=== PATIENT | male | born 1985 | race Caucasian/White ===

== ENCOUNTER 2016-05-04 11:19 | Emergency (ER) | payer OTHER ==
[~2016-05-04] VITALS: Ht 180.3 cm; Wt 77.1 kg
[~2016-05-04 11:19] MED LIST: ZANTTAB9 PO
[2016-05-04 11:30] VITALS: BP 118/86; PULSE 79; RESP 17; TEMP 98.4; O2SAT 100
[2016-05-04] MEDS ORDERED: AZIT250T3 PO (11:55)
[2016-05-04] MEDS ORDERED: MEDR4PAK PO (11:55)
[2016-05-04] MEDS ORDERED: ALBUAER3 INH (11:55)
--- NOTE | 2016-05-04 12:01 | PD ---
HPI Chief Complaint: Cold / Flu Symptoms Time Seen by Provider: 11:56 Travel History International Travel<30 days: No Contact w/Intl Traveler<30days: No Traveled to known affect area: No History of Present Illness HPI Patient is a 30-year-old male sitting with ENT/URI symptoms for 4 days. He states he had influenza in March and only recently got over that several weeks ago. He's been having a cough that is dry with wheezing, denies history of asthma. He is a tobacco user. He denies chest pain, fever and dyspnea. He said is a congestion as well and yesterday developed sore throat. He states that his tonsils are enlarged which Is improved greatly when he gets "infections ". He denies any lymphadenopathy, neck stiffness, masses or induration. He denies myalgias and headaches. He has pain with swallowing but denies inability to swallow or difficulty breathing through the mouth. PFSH Past Medical History Bipolar Disorder: Yes Anxiety: Yes Depression: Yes Diminished Hearing: No GERD: Yes Immunizations Current: No Past Surgical History Oral Surgery: Yes (WISDOM TEETH ) Tympanostomy Tube: Yes Other Surgery: Yes (PILONIDIAL POLYPS) Social History Alcohol Use: No (denies) Tobacco Use: Yes (1 PPD) Substance Use: Yes ("RECOVERING ADDICT") Allergies-Medications (Allergen,Severity, Reaction): Coded Allergies: No Known Allergies (Unverified , 05/04/16) Reported Meds & Prescriptions Reported Meds & Active Scripts Active Medrol Dosepak (Methylprednisolone) 4 Mg Dspk 4 Mg PO DIRECTED Per Pharmacist direction Proair Hfa 8.5 GM Inh (Albuterol Sulfate) 90 Mcg/Act Aer 2 Puff INH Q4-6H PRN 108 mcg/actuation Azithromycin 250 Mg Tab 250 Mg PO DIRECTED Take 2 tabs (500 mg) on day 1 then 1 tab daily x 4 days. Review of Systems Except as stated in HPI: all other systems reviewed are Neg Physical Exam Narrative GENERAL: Well-developed and well-nourished adult male in no acute distress. SKIN: Warm and dry. Good turgor without tenting. HEAD: Normocephalic and atraumatic. EYES: PERRL bilaterally, 5mm. EOMI bilaterally. No injection or icterus present. No proptosis. Lids without edema or erythema. ENT: Bilateral ear canals are non-edematous/non-erythematous without otorrhea. Bilateral TMs have intact landmarks and without distortion, perforation, air- fluid level or erythema. Nasal mucosa erythematous and edematous with clear discharge, septum intact and midline. Buccal mucosa pink and moist. Oropharynx reveals bilateral 2+ tonsillar hypertrophy without erythema, masses, swelling, asymmetry and exudates. Uvula midline and airway patent. NECK: Supple, no meningeal signs. Trachea midline, no JVD. No cervical or facial lymphadenopathy. No masses or induration palpated. CARDIOVASCULAR: Regular rate and rhythm without murmurs, rubs, clicks or gallops. Radial and posterior tibial pulses 2+ bilaterally. No pedal edema. RESPIRATORY: Scattered rhonchi with occasional end expiratory wheezing, no rales auscultated. No distress or use of accessory muscles. No stridor, tripoding or drooling. Speaks in full sentences. MUSCULOSKELETAL: No gait disturbances. Patient freely moving all four extremities spontaneously. Extremities without clubbing, cyanosis, or edema. No obvious deformities. NEUROLOGIC: CN II-XII grossly intact. Awake and alert. Motor grossly within normal limits. Normal speech. PSYCHIATRIC: Appropriate mood and affect; insight and judgment normal. Data Data Last Documented VS Vital Signs Date Time Temp Pulse Resp B/P Pulse Ox O2 Delivery O2 Flow Rate FiO2 05/04/16 11:30 98.4 79 17 118/86 100 Orders Albuterol-Ipratropium Neb (Duoneb Neb) (05/04/16 12:00) [facility] Medical Decision Making Medical Screen Exam Complete: Yes Emergency Medical Condition: Yes Differential Diagnosis Bronchitis versus pneumonia versus viral syndrome versus pharyngitis Narrative Course Patient is a 30-year-old male who is a current smoker presenting with ENT/URI symptoms for 4 days. He recently had influenza which resolved several weeks prior. He is afebrile and nontoxic appearing. He has some rhonchi and wheezing on exam but hasn't no increased work of breathing and oxygen saturations are normal on room air. He has some tonsillar hypertrophy but no exudate or erythema, Centor criteria of 0. As he has other ENT symptoms do not believe any rapid strep would be of benefit. DuoNeb 2 given, [-]. This patient had recent viral infection in his tobacco smoker there is concern for bacterial etiology. We'll provide azithromycin, pro-air inhaler and Medrol Dosepak.See discharge paperwork for further instructions. The plan was discussed with the patient who acknowledged their understanding and agreement. Reinforced the follow-up with primary care is critically important. Patient instructed on emergent conditions that should prompt return to ED. Diagnosis Primary Impression: Acute bronchitis Qualified Code: J20.9 - Acute bronchitis, unspecified organism Patient Instructions: Acute Bronchitis (ED), General Instructions Departure Forms: Tests/Procedures, Work Release Enter return to work date: May 07, 2016 Additional Instructions: Take medication as prescribed OTC Mucinex, cough suppressants, and decongestants as needed OTC Tylenol or Ibuprofen for fever and discomfort Drink lots of fluid to help clear mucous/drainage and stay hydrated Follow up with PCP in 2 days Return to the ED for any acute worsening of symptoms Med/Other Pt SpecificInfo: Prescription(s) given Scripts Methylprednisolone Dosepak (Medrol Dosepak)4 Mg Dspk4 Mg PO DIRECTED #1 DSPK Per Pharmacist direction Prov:Anat Doyle MD 05/04/16 Albuterol 8.5 GM Inh (Proair Hfa 8.5 GM Inh)90 Mcg/Act Aer2 Puff INH Q4-6H PRN ( SHORTNESS OF BREATH) #1 INHALER 108 mcg/actuation Prov:Anat Doyle MD 05/04/16 Azithromycin 250 Mg Nss044 Mg PO DIRECTED #6 TAB Take 2 tabs (500 mg) on day 1 then 1 tab daily x 4 days. Prov:Anat Doyle MD 05/04/16 Disposition: 01 DISCHARGE HOME Condition: Stable Jose Davis III May 04, 2016 12:01
[2016-05-04] MEDS: RESP: ALBUTEROL 2.5 MG/IPRATROPIUM 0.5 MG NEB (SCH) INH (12:04)
== END 2016-05-04 12:59 | disposition home or self-care (01) ==
LOC: PHEFT 11:19
DX: J20.9 Acute bronchitis, unspecified (principal); R06.2 Wheezing; R07.0 Pain in throat; F17.200 Nicotine dependence, unspecified, uncomplicated; Z86.59 Personal history of other mental and behavioral disorders; Z87.19 Personal history of other diseases of the digestive system
CPT/HCPCS: 94640; 94664; 99283

== ENCOUNTER 2017-02-01 19:53 | Emergency (ER) | payer OTHER ==
[~2017-02-01 19:53] MED LIST changes: +ALBUAER3 INH; +AZIT250T3 PO; +MEDR4PAK PO; -ZANTTAB9 PO
[2017-02-01 19:56] VITALS: BP 135/80; PULSE 95; RESP 18; TEMP 97.9; O2SAT 97
[2017-02-01] MEDS ORDERED: Lithium (20:47)
[2017-02-01] MEDS ORDERED: DIAZ5TAB PO (20:47)
[2017-02-01] MEDS ORDERED: ZANT300T PO (20:47)
[2017-02-01] MEDS ORDERED: OMEP10CA PO (20:47)
--- NOTE | 2017-02-01 20:56 | PD ---
HPI Chief Complaint: Musculoskeletal Complaint Time Seen by Provider: 20:39 Travel History International Travel<30 days: No Contact w/Intl Traveler<30days: No Traveled to known affect area: No History of Present Illness HPI 31-year-old male presents to emergency department complaining of right wrist pain that occurred this afternoon about 4 PM. States that he was driving his car and developed a pain to his right wrist and is concerned because he [facility]. Patient states that he is tender to the touch of the base the thumb and wrist area is not normal for him. He says he has full range of motion of his wrist and has saturator strength but he did drop a drink today because of the pain. Patient has taken Tylenol for his pain with minimal relief. History Social History Alcohol Use: No (denies) Tobacco Use: Yes (1 PPD) Allergies-Medications (Allergen,Severity, Reaction): Coded Allergies: No Known Allergies (Unverified Adverse Reaction, Unknown, 02/01/17) Reported Meds & Prescriptions Reported Meds & Active Scripts Active Reported Zantac (Ranitidine HCl) 300 Mg Tab Unknown Dose PO DAILY Omeprazole 10 Mg Cap Unknown Dose PO DAILY Diazepam 5 Mg Tab Unknown Dose PO DAILY [[place]] Unknown Dose Review of Systems Except as stated in HPI: all other systems reviewed are Neg Physical Exam Narrative GENERAL: Well-nourished, well-developed patient. SKIN: Focused skin assessment warm/dry. HEAD: Normocephalic. EYES: No scleral icterus. No injection or drainage. NECK: Supple, trachea midline. No JVD or lymphadenopathy. CARDIOVASCULAR: Regular rate and rhythm without murmurs, gallops, or rubs. RESPIRATORY: Breath sounds equal bilaterally. No accessory muscle use. MUSCULOSKELETAL: No cyanosis, or edema. Right wrist: TTP to the radial aspect of thumb tendons, positive Jaguar, neurovascular intact. Full range of motion. No ecchymosis, crepitus or edema. BACK: Nontender without obvious deformity. No CVA tenderness. Data Data Last Documented VS Vital Signs Date Time Temp Pulse Resp B/P (MAP) Pulse Ox O2 Delivery O2 Flow Rate FiO2 02/01/17 19:56 97.9 95 18 135/80 (98) 97 MDM Medical Screen Exam Complete: Yes Emergency Medical Condition: Yes Differential Diagnosis Dequervains tenosynovisits right wrist Narrative Course 31-year-old male presents to emergency department complaining of right wrist pain that occurred this afternoon about 4 PM. States that he was driving his car and developed a pain to his right wrist and is concerned because he is currently being treated for a fracture of the right wrist by the [place]. [facility] says that [facility]. Patient states that he is tender to the touch of the base the thumb and wrist area is not normal for him. He says he has full range of motion of his wrist and has saturator strength but he did drop a drink today because of the pain. Patient has taken Tylenol for his pain with minimal relief. He did not wear his brace to the emergency department today. Denies illicit drug use. Physical exam demonstrates positive Jaguar's, TTP to the base of the thumb and wrist area, full range of motion without crepitus, no ecchymosis or edema. Neurovascularly intact We had a long discussion as to what we can do for him today to include imaging studies and anti-inflammatory medications. He has a patient's financial status he stated that he would not be a refill his medications anyway and stated that he'll follow up with his [place] primary care physician in the morning. I explained that he will need to follow up with his primary care physician anyway to further evaluate his condition. A medical screening exam was performed: At the time of evaluation the presenting medical condition was determined not to be of an emergent nature. The patient was given the option of receiving additional care, but declined. Patient was given options for additional community resources from which to obtain care. The Patient Has Been advised to seek medical attention for their presenting complaint. The patient has been advised to return to the ER at any time if an emergent condition develops. Primary Impression: Encounter for medical screening examination Disposition: 01 DISCHARGE HOME Condition: Stable Adri Dial Feb 01, 2017 20:56
--- NOTE | 2017-02-01 20:56 | PD ---
HPI Chief Complaint: Musculoskeletal Complaint Time Seen by Provider: 20:39 Travel History International Travel<30 days: No Contact w/Intl Traveler<30days: No Traveled to known affect area: No History of Present Illness HPI 31-year-old male presents to emergency department complaining of right wrist pain that occurred this afternoon about 4 PM. States that he was driving his car and developed a pain to his right wrist and is concerned because he is currently [facility]. Patient states that he is tender to the touch of the base the thumb and wrist area is not normal for him. He says he has full range of motion of his wrist and has lieutenant general strength but he did drop a drink today because of the pain. Patient has taken Tylenol for his pain with minimal relief. History Social History Alcohol Use: No (denies) Tobacco Use: Yes (1 PPD) Allergies-Medications (Allergen,Severity, Reaction): Coded Allergies: No Known Allergies (Unverified Adverse Reaction, Unknown, 02/01/17) Reported Meds & Prescriptions Reported Meds & Active Scripts Active Reported Zantac (Ranitidine HCl) 300 Mg Tab Unknown Dose PO DAILY Omeprazole 10 Mg Cap Unknown Dose PO DAILY Diazepam 5 Mg Tab Unknown Dose PO DAILY [[place]] Unknown Dose Review of Systems Except as stated in HPI: all other systems reviewed are Neg Physical Exam Narrative GENERAL: Well-nourished, well-developed patient. SKIN: Focused skin assessment warm/dry. HEAD: Normocephalic. EYES: No scleral icterus. No injection or drainage. NECK: Supple, trachea midline. No JVD or lymphadenopathy. CARDIOVASCULAR: Regular rate and rhythm without murmurs, gallops, or rubs. RESPIRATORY: Breath sounds equal bilaterally. No accessory muscle use. MUSCULOSKELETAL: No cyanosis, or edema. Right wrist: TTP to the radial aspect of thumb tendons, positive Jaguar, neurovascular intact. Full range of motion. No ecchymosis, crepitus or edema. BACK: Nontender without obvious deformity. No CVA tenderness. Data Data Last Documented VS Vital Signs Date Time Temp Pulse Resp B/P (MAP) Pulse Ox O2 Delivery O2 Flow Rate FiO2 02/01/17 19:56 97.9 95 18 135/80 (98) 97 MDM Medical Screen Exam Complete: Yes Emergency Medical Condition: Yes Differential Diagnosis Dequervains tenosynovisits right wrist Narrative Course 31-year-old male presents to emergency department complaining of right wrist pain that occurred this afternoon about 4 PM. States that he was driving his car and developed a pain to his right wrist and is concerned because he is currently being treated for a fracture of the right wrist by the [place]. [facility] says that [facility]. Patient states that he is tender to the touch of the base the thumb and wrist area is not normal for him. He says he has full range of motion of his wrist and has lieutenant general strength but he did drop a drink today because of the pain. Patient has taken Tylenol for his pain with minimal relief. He did not wear his brace to the emergency department today. Denies illicit drug use. Physical exam demonstrates positive Jaguar's, TTP to the base of the thumb and wrist area, full range of motion without crepitus, no ecchymosis or edema. Neurovascularly intact We had a long discussion as to what we can do for him today to include imaging studies and anti-inflammatory medications. He has a patient's financial status he stated that he would not be a refill his medications anyway and stated that he'll follow up with his [place] primary care physician in the morning. I explained that he will need to follow up with his primary care physician anyway to further evaluate his condition. A medical screening exam was performed: At the time of evaluation the presenting medical condition was determined not to be of an emergent nature. The patient was given the option of receiving additional care, but declined. Patient was given options for additional community resources from which to obtain care. The Patient Has Been advised to seek medical attention for their presenting complaint. The patient has been advised to return to the ER at any time if an emergent condition develops. Primary Impression: Encounter for medical screening examination Disposition: 01 DISCHARGE HOME Condition: Stable Adri Dial Feb 01, 2017 20:56
--- NOTE | 2017-02-01 20:56 | PD ---
HPI Chief Complaint: Musculoskeletal Complaint Time Seen by Provider: 20:39 Travel History International Travel<30 days: No Contact w/Intl Traveler<30days: No Traveled to known affect area: No History of Present Illness HPI 31-year-old male presents to emergency department complaining of right wrist pain that occurred this afternoon about 4 PM. States that he was driving his car and developed a pain to his right wrist and is concerned because he is currently [facility] says that [facility] is [facility] him. Patient states that he is tender to the touch of the base the thumb and wrist area is not normal for him. 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 Patient has taken Tylenol for his pain with minimal relief. History Social History Alcohol Use: No (denies) Tobacco Use: Yes (1 PPD) Allergies-Medications (Allergen,Severity, Reaction): Coded Allergies: No Known Allergies (Unverified Adverse Reaction, Unknown, 02/01/17) Reported Meds & Prescriptions Reported Meds & Active Scripts Active Reported Zantac (Ranitidine HCl) 300 Mg Tab Unknown Dose PO DAILY Omeprazole 10 Mg Cap Unknown Dose PO DAILY Diazepam 5 Mg Tab Unknown Dose PO DAILY [[place]] Unknown Dose Review of Systems Except as stated in HPI: all other systems reviewed are Neg Physical Exam Narrative GENERAL: Well-nourished, well-developed patient. SKIN: Focused skin assessment warm/dry. HEAD: Normocephalic. EYES: No scleral icterus. No injection or drainage. NECK: Supple, trachea midline. No JVD or lymphadenopathy. CARDIOVASCULAR: Regular rate and rhythm without murmurs, gallops, or rubs. RESPIRATORY: Breath sounds equal bilaterally. No accessory muscle use. MUSCULOSKELETAL: No cyanosis, or edema. Right wrist: TTP to the radial aspect of thumb tendons, positive Jaguar, neurovascular intact. Full range of motion. No ecchymosis, crepitus or edema. BACK: Nontender without obvious deformity. No CVA tenderness. Data Data Last Documented VS Vital Signs Date Time Temp Pulse Resp B/P (MAP) Pulse Ox O2 Delivery O2 Flow Rate FiO2 02/01/17 19:56 97.9 95 18 135/80 (98) 97 MDM Medical Screen Exam Complete: Yes Emergency Medical Condition: Yes Differential Diagnosis Dequervains tenosynovisits right wrist Narrative Course 31-year-old male presents to emergency department complaining of right wrist pain that occurred this afternoon about 4 PM. States that he was driving his car and developed a pain to his right wrist and is concerned because he is currently being treated for a fracture of the right wrist by the [place]. [facility]. Patient states that he is tender to the touch of the base the thumb and wrist area is not normal for him. 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 Patient has taken Tylenol for his pain with minimal relief. He did not wear his brace to the emergency department today. Denies illicit drug use. Physical exam demonstrates positive Jaguar's, TTP to the base of the thumb and wrist area, full range of motion without crepitus, no ecchymosis or edema. Neurovascularly intact We had a long discussion as to what we can do for him today to include imaging studies and anti-inflammatory medications. He has a patient's financial status he stated that he would not be a refill his medications anyway and stated that he'll follow up with his [place] primary care physician in the morning. I explained that he will need to follow up with his primary care physician anyway to further evaluate his condition. A medical screening exam was performed: At the time of evaluation the presenting medical condition was determined not to be of an emergent nature. The patient was given the option of receiving additional care, but declined. Patient was given options for additional community resources from which to obtain care. The Patient Has Been advised to seek medical attention for their presenting complaint. The patient has been advised to return to the ER at any time if an emergent condition develops. Primary Impression: Encounter for medical screening examination Disposition: 01 DISCHARGE HOME Condition: Stable Adri Dial Feb 01, 2017 20:56
== END 2017-02-01 20:59 | disposition left against medical advice (07) ==
LOC: PHEFT 19:53
DX: M25.531 Pain in right wrist (principal); Z72.0 Tobacco use
CPT/HCPCS: 99281

== ENCOUNTER 2017-07-08 15:31 | Emergency (ER) | payer OTHER ==
[~2017-07-08] VITALS: Ht 180.3 cm; Wt 77.5 kg
[~2017-07-08 15:31] MED LIST changes: -ALBUAER3 INH; -AZIT250T3 PO; +DIAZ5TAB PO; +Lithium; -MEDR4PAK PO; +OMEP10CA PO; +ZANT300T PO
[2017-07-08 15:41] VITALS: BP 135/63; PULSE 107; RESP 18; TEMP 99.3; O2SAT 97
--- NOTE | 2017-07-08 15:58 | PD ---
HPI Chief Complaint: Skin Problem Time Seen by Provider: 15:54 Travel History International Travel<30 days: No Contact w/Intl Traveler<30days: No Traveled to known affect area: No History of Present Illness HPI 32-year-old male presents emergency department for evaluation of a lesion on his left upper extremity is been present for approximately 1 week. States that he has been clean of IV drugs for 6 months but relapsed last Wednesday. Says that he injected Dilaudid into the area and the area has just become larger more painful. Denies any other drug use. Patient says that the lesion has worsened over the last day and decided to come to the emergency department today for evaluation and treatment. He denies fever or chills. Denies nausea, vomiting or diarrhea. Has no other complaints at this point. PFSH Past Medical History Bipolar Disorder: Yes Anxiety: Yes Depression: Yes Diminished Hearing: No GERD: Yes Immunizations Current: No Past Surgical History Oral Surgery: Yes (WISDOM TEETH ) Tympanostomy Tube: Yes Other Surgery: Yes (PILONIDIAL POLYPS) Social History Alcohol Use: No (denies) Tobacco Use: Yes (1 PPD) Substance Use: Yes ("RECOVERING ADDICT") Allergies-Medications (Allergen,Severity, Reaction): Coded Allergies: No Known Allergies (Unverified Adverse Reaction, Unknown, 07/08/17) Reported Meds & Prescriptions Reported Meds & Active Scripts Active Reported [place] Carbonate ER ([place] Carbonate) 300 Mg Tab Unknown Dose PO BID Omeprazole 10 Mg Cap Unknown Dose PO DAILY Diazepam 5 Mg Tab Unknown Dose PO DAILY Review of Systems Except as stated in HPI: all other systems reviewed are Neg Physical Exam Narrative GENERAL: Well-nourished, well-developed patient. SKIN: Focused skin assessment warm/dry. Left upper extremity-mid bicep approximately 3 cm area of erythema, 2-1/2 cm fluctuance. Central puncta versus tract omar. No lymphadenopathy. HEAD: Normocephalic. EYES: No scleral icterus. No injection or drainage. NECK: Supple, trachea midline. No JVD or lymphadenopathy. CARDIOVASCULAR: Regular rate and rhythm without murmurs, gallops, or rubs. RESPIRATORY: Breath sounds equal bilaterally. No accessory muscle use.domen soft , non-tender, nondistended. MUSCULOSKELETAL: No cyanosis, or edema. BACK: Nontender without obvious deformity. No CVA tenderness. Data Data Last Documented VS Vital Signs Date Time Temp Pulse Resp B/P (MAP) Pulse Ox O2 Delivery O2 Flow Rate FiO2 07/08/17 15:41 99.3 107 18 135/63 (87) 97 Orders Orders Sulfamet-Trimeth Ds 800-160 Mg (Bactrim (07/08/17 16:00) Cephalexin (Keflex) (07/08/17 16:00) Ibuprofen (Motrin) (07/08/17 16:00) Wound Culture And Gram Stain (07/08/17 16:01) Ed Discharge Order (07/08/17 16:46) [facility] Medical Decision Making Medical Screen Exam Complete: Yes Emergency Medical Condition: Yes Differential Diagnosis Abscess, cellulitis, erysipelas Narrative Course 32-year-old male with history of IV drug use presents emergency department with an abscess to the left upper extremity that is been present for approximately 1 week. He denies fever, chills, nausea, vomiting. Vital signs-heart rate 107, temperature 99.3. Blood pressure stable. His exam findings consistent with an abscess to the left upper extremity and the anterior aspect of the mid bicep. Patient is rather anxious. Incision and drainage performed. Wound culture taken. Patient says that he has been clean from drugs for about 6 months. Says that he recently relapsed and does want to get clean again. Patient is due to follow -up with rehab this month. Patient advised to return to the emergency department in approximately 2 days for wound check. Keflex and Bactrim administered emergency department. He will receive a prescription for these medications as well. Patient states he does have a primary care physician at the [place] but I advised him that if he cannot get in within 2 days to return to the emergency department for wound check. Procedures Procedure Narrative INCISION AND DRAINAGE OF ABSCESS: The area was prepped and was sterilely draped. A subcutaneous wheal of 2% Xylocaine without epinephrine with a total number 2 mL was used to anesthetize the area properly. A number 11 scalpel was used to make a 1-cm incision across the area of the abscess. The abscess was drained, complex loculations were broken down, and irrigated with normal saline. Cultures were obtained. Quarter inch iodoform packing was placed in the wound. Sterile dressing applied. Patient advised to have packing removed in two days. Diagnosis Primary Impression: Abscess Referrals: [facility] Additional Instructions: Return to the emergency department in 2 days for wound check. You may follow up with your primary care physician as well for this. Keep area clean and dry. You may use [id number] triple antibiotic ointments for your injury daily. Change dressings daily. If bleeding starts, applied pressure and elevate the area. If he developed increased redness, swelling, or pain return to the emergency department. Disposition: 01 DISCHARGE HOME Condition: Stable Adri Dial Jul 08, 2017 15:58
[2017-07-08] MEDS ORDERED: BACT800T5 PO (15:59)
[2017-07-08] MEDS ORDERED: CEPH-460 PO (15:59)
[2017-07-08] MEDS ORDERED: CEPHALEXIN MONOHYDRATE 500 MG CAP PO ONE (16:00)
[2017-07-08] MEDS ORDERED: IBUPROFEN 600 MG TAB PO ONE (16:00)
[2017-07-08] MEDS ORDERED: SULFAMETHOXAZOLE-TRIMETHOPRIM DS 800-160 MG TAB PO ONE (16:00)
[2017-07-08] MEDS ORDERED: LITH300T PO (16:21)
== END 2017-07-08 17:01 | disposition home or self-care (01) ==
LOC: PHEFT 15:31
DX: L02.414 Cutaneous abscess of left upper limb (principal); B96.89 Other specified bacterial agents as the cause of diseases classified elsewhere; F41.9 Anxiety disorder, unspecified; K21.9 Gastro-esophageal reflux disease without esophagitis; F31.9 Bipolar disorder, unspecified; F17.210 Nicotine dependence, cigarettes, uncomplicated; Z79.899 Other long term (current) drug therapy
CPT/HCPCS: 10061; 87070; 87205